=== PATIENT | male | born 1985 | race Caucasian/White ===

== ENCOUNTER 2018-03-24 13:32 | Emergency (ER) | payer OTHER ==
--- NOTE | 2018-03-24 16:12 | UC ---
Skin Complaint HPI - HPI Summary HPI Summary: 5 mm raised tend firm abscess in left axilla-had similar in the past DX with MRSA - History of Current Complaint Chief Complaint: UCSkin Time Seen by Provider: 03/24/18 16:01 Stated Complaint: RED AREA IN ARMPIT Hx Obtained From: Patient Onset/Duration: Sudden Onset, Lasting Days - 3, Still Present Timing: Constant Pain Intensity: 3 Pain Scale Used: 0-10 Numeric Location: Discrete Character: Redness, Raised, Painful Aggravating Factor(s): Nothing Alleviating Factor(s): Nothing Associated Signs & Symptoms: Positive: Tenderness. Negative: Drainage - Allergy/Home Medications Allergies/Adverse Reactions: Allergies Allergy/AdvReac Type Severity Reaction Status Date / Time No Known Allergies Allergy Verified 03/24/18 15:17 Review of Systems Constitutional: Negative Skin: Other - 5 mm raised red abscess left axilla for 3 days Eyes: Negative ENT: Negative Respiratory: Negative Cardiovascular: Negative Gastrointestinal: Negative Genitourinary: Negative Motor: Negative Neurovascular: Negative Musculoskeletal: Negative Neurological: Negative Psychological: Negative Is Patient Immunocompromised?: No All Other Systems Reviewed And Are Negative: Yes PMH/Surg Hx/FS Hx/Imm Hx Previously Healthy: Yes - Surgical History Surgical History: None - Family History Known Family History: Positive: None - Social History Occupation: Employed Full-time Lives: With Family Alcohol Use: Weekly Substance Use Type: None Smoking Status (MU): Never Smoked Tobacco Physical Exam Triage Information Reviewed: Yes Appearance: Well-Appearing, No Pain Distress, Well-Nourished Vital Signs: Initial Vital Signs Temp 98.1 F 03/24/18 15:13 Pulse 55 03/24/18 15:13 Resp 16 03/24/18 15:13 BP 118/76 03/24/18 15:13 Pulse Ox 100 03/24/18 15:13 Vital Signs Reviewed: Yes Eye Exam: Normal Eyes: Positive: Conjunctiva Clear ENT Exam: Normal ENT: Positive: Normal ENT inspection, Hearing grossly normal. Negative: Trismus , Muffled voice, Hoarse voice Dental Exam: Normal Neck exam: Normal Neck: Positive: Supple, Nontender Respiratory Exam: Normal Respiratory: Positive: Chest non-tender, No respiratory distress, No accessory muscle use Cardiovascular Exam: Normal Cardiovascular: Positive: RRR, Pulses Normal, Brisk Capillary Refill Musculoskeletal Exam: Normal Musculoskeletal: Positive: Strength Intact, ROM Intact, No Edema Neurological Exam: Normal Neurological: Positive: Alert, Muscle Tone Normal Psychological Exam: Normal Skin Exam: Other - 5 mm raised red tender firm abscess left axilla Skin: Positive: Other Course/Dx - Course Course Of Treatment: warm compress, bactrim, recheck when softens for I&D if not open and draining/resolving - Diagnoses Provider Diagnoses: abscess left axilla Discharge - Sign-Out/Discharge Documenting (check all that apply): Patient Departure - Discharge Plan Condition: Stable Disposition: HOME Prescriptions: Sulfamethox/Trimethoprim DS* [Bactrim DS 800/160 TAB*] 1 tab PO BID #20 tab Patient Education Materials: Abscess (ED), Warm Compress or Soak (ED) Referrals: [facility] [place] [facility]IAN REFERRAL [Outside] - If Needed Additional Instructions: Per institutional requirements, I have reviewed the chart, however, I was not consulted specifically or made aware of this patient by the above midlevel provider. I did not personally evaluate, interact with , or disposition this patient. - Billing Disposition and Condition Condition: STABLE Disposition: Home
== END 2018-03-24 16:18 | disposition home or self-care (01) ==
LOC: UCEAST 13:32
DX: L02.412 Cutaneous abscess of left axilla (principal); Z86.14 Personal history of Methicillin resistant Staphylococcus aureus infection
CPT/HCPCS: 99202; G0463

== ENCOUNTER 2018-06-23 12:41 | Emergency (ER) | payer OTHER ==
--- NOTE | 2018-06-23 14:00 | UC ---
FLU HPI - HPI Summary HPI Summary: 33 y/o male presents to the urgent care c/o body aches, nasal congestion, w/ clear nasal discharge, fever, chills for the past 2 days. His son has similar symptoms. Sore throat is 6/10 w/ swallowing anb +PND. He has been taking Cold an sinus OTC medication to alleviate symptoms . Last dose taken was at 1130Pm. he is concerned w/ the flu. Pt denies rashes, neck pain, Hx of tick bites, BOLDEN, SOB, cough, chest pain, abdominal pain, N/v/D. - History of Current Complaint Chief Complaint: UCGeneralIllness Stated Complaint: FLU SYMPTOMS Time Seen by Provider: 06/23/18 13:43 Hx Obtained From: Patient Onset/Duration: Gradual Onset, Lasting Days - 2 days, Still Present, Worse Since - today Severity Currently: Mild Severity Initially: Moderate Pain Intensity: 6 - body aches Pain Scale Used: 0-10 Numeric Associated Signs & Symptoms: Positive: Fever, Myalgia, Sore Throat, Nasal Congestion - clear. Negative: Cough, Vomiting, Diarrhea - Risk Factors Influenza Risk Factors: Negative - Allergy/Home Medications Allergies/Adverse Reactions: Allergies Allergy/AdvReac Type Severity Reaction Status Date / Time No Known Allergies Allergy Verified 06/23/18 12:50 Home Medications: Home Medications NK [No Home Medications Reported] 06/23/18 [History Confirmed 06/23/18] PMH/Surg Hx/FS Hx/Imm Hx Previously Healthy: Yes - Pt denies PMHX - Surgical History Surgical History: None - Family History Known Family History: Positive: None - Pt denies FMHX - Social History Occupation: Employed Full-time Lives: With Family Alcohol Use: Weekly Substance Use Type: None Smoking Status (MU): Never Smoked Tobacco Review of Systems Constitutional: Fever, Chills, Fatigue, Other - body aches Skin: Negative Eyes: Negative ENT: Sore Throat, Nasal Discharge - clear, Sinus Congestion Respiratory: Negative Cardiovascular: Negative Gastrointestinal: Negative Genitourinary: Negative Motor: Negative Neurovascular: Negative Musculoskeletal: Myalgia Neurological: Negative Psychological: Negative Is Patient Immunocompromised?: No All Other Systems Reviewed And Are Negative: Yes Physical Exam - Summary Physical Exam Summary: VITAL SIGNS: Reviewed. GENERAL: Patient is a well developed and nourished male who is sitting comfortable in the examining table. Patient is not in any acute respiratory distress. HEAD AND FACE: No signs of trauma. No ecchymosis, hematomas or skull depressions. No sinus tenderness. EYES: PERRLA, EOMI x 2, No injected conjunctiva, no nystagmus. No photophobia. EARS: Hearing grossly intact. Ear canals and tympanic membranes are within normal limits. Nose: edematous and erythematous nasal mucosa w/ clear nasal discharge. MOUTH: Positive no erythema, no tonsillar enlargement. Uvula in midline. NECK: Supple, trachea is midline, Positive anterior cervical lymphadenopathy, no JVD, no carotid bruit, no c-spine tenderness, neck with full ROM. No meningeal signs, no Kernig's or brudzinskis signs. CHEST: Symmetric, no tenderness at palpation LUNGS: Clear to auscultation bilaterally. No wheezing or crackles. CVS: Regular rate and rhythm, S1 and S2 present, no murmurs or gallops appreciated. ABDOMEN: Soft, non-tender. No signs of distention. No rebound no guarding, and no masses palpated. Bowel sounds are normal. EXTREMITIES: FROM in all major joints, no edema, no cyanosis or clubbing. NEURO: Alert and oriented x 3. No acute neurological deficits. Speech is normal and follows commands. SKIN: Dry and warm Triage Information Reviewed: Yes Vital Signs: Initial Vital Signs Temp 98.7 F 06/23/18 12:47 Pulse 70 06/23/18 12:47 Resp 16 06/23/18 12:47 BP 112/72 06/23/18 12:47 Pulse Ox 99 06/23/18 12:47 Flu Course/Dx - Course Course Of Treatment: 33 y/o male presents to the urgent care c/o body aches, nasal congestion, w/ clear nasal discharge, fever, chills for the past 2 days. His son has similar symptoms. Sore throat is 6/10 w/ swallowing anb +PND. He has been taking Cold an sinus OTC medication to alleviate symptoms . Last dose taken was at 1130Pm. he is concerned w/ the flu. Pt denies rashes, neck pain, Hx of tick bites, BOLDEN, SOB, cough, chest pain, abdominal pain, N/v/D. Hx obtained. Pt w/ URI on examination. Influenza A&B ordered: result: negative. Pt advised to take ibuprofen PO to alleviates symptoms. Advised on hand washing. Pt advised to rest, increase fluid intake, eat well and avoid strenuous exercise. If symptoms do not improve or worsen advised to return to the urgent care or f/u with her PCP for further evaluation and treatment. Pt understood and agreed with plan of care. - Differential Dx/Diagnosis Differential Diagnosis/HQI/PQRI: Bronchitis, Influenza, Upper Respiratory Infection Provider Diagnoses: 1-Viral syndrome Discharge - Sign-Out/Discharge Documenting (check all that apply): Patient Departure - D/C home All imaging exams completed and their final reports reviewed: No - Discharge Plan Condition: Stable Disposition: HOME Patient Education Materials: Viral Syndrome (ED) Forms: *Work Release Referrals: [facility] [place] [facility]IAN REFERRAL [Outside] - 3 Days Additional Instructions: 1-Please continue taking Ibuprofen PO q6-8hrs prn as instructed after meals to alleviate fever, and sore throat. Increase fluid intake, eat well, rest and avoid strenuous exercise 2-If symptoms do not improve or worsen please return to the urgent care or f/u with your PCP in 3 days for further evaluation and treatment. - Billing Disposition and Condition Condition: STABLE Disposition: Home
== END 2018-06-23 14:45 | disposition home or self-care (01) ==
LOC: UCEAST 12:41
DX: B34.9 Viral infection, unspecified (principal)
CPT/HCPCS: 99211; G0463